=== PATIENT | male | born 1960 | race Asian ===

== ENCOUNTER 2016-08-16 14:10 | Emergency (ER) | payer OTHER ==
[2016-08-16 14:15] VITALS: TEMP 97.4; BMI 27.9
[2016-08-16] MEDS ORDERED: KETOROLAC TROMETHAMINE 30 MG/1 ML VIAL IVPUSH ONE (14:43)
[2016-08-16] MEDS ORDERED: SODIUM CHLORIDE 1,000 ML IV ONE (14:43)
--- NOTE | 2016-08-16 14:44 | PDOC ---
History of Present Illness - General History Source: Patient Exam Limitations: No Limitations - History of Present Illness Initial Comments: 08/16/16 14:52 The patient is a 56-year-old man with a past medical history of hypertension, hypercholesterolemia, diabetes mellitus and kidney stones who presents to the emergency department via walk-in for further evaluation of flank pain. No fall, trauma, strenuous activity. As per patient, he had an acute onset of left sided flank pain since last night, that has remained constant throughout with a rated 8/10 in severity. He states that his pain has started to radiate up his back. He denies any urinary associated symptoms. No fever, chills. He states that his current symptoms are similar to when he had a kidney stone in the past , which was also on the left side. He did not take any pain medications in the past. No fever, chills, generalized weakness. No chest pain, lightheadedness, dizziness, palpitations, headache, visual changes. No abdominal pain, nausea, vomiting, diarrhea, No numbness, tingling, weakness sensations throughout his extremities. Allergies: No Known Drug Allergies Past Surgical History: Triple Bypass (2009) Social History: No tobacco or recreational drug use. Rare ETOH use Primary Care Physician: Dr. Rodger Vences [phone]/ [phone] Urologist: Dr. Nic Roman [phone] <Hannah Roman - Last Filed: 08/16/16 17:09> <Hill Brewer - Last Filed: 08/16/16 17:57> - General Chief Complaint: Pain, Acute Stated Complaint: FLANK PAIN Time Seen by Provider: 08/16/16 14:38 Past History <Hannah Roman - Last Filed: 08/16/16 17:09> - Past Medical History Diabetes: Yes (BORDERLINE) Disorders: Yes (KIDNEY STONES) HTN: Yes Hypercholesterolemia: Yes - Surgical History Cardiac Surgery: Yes (TRIPLE BYPASS IN 2009) Orthopedic Surgery: No - Psycho/Social/Smoking Cessation Hx Anxiety: No Suicidal Ideation: No Smoking Status: No Smoking History: Never smoked Have you smoked in the past 12 months: No Number of Cigarettes Smoked Daily: 0 Information on smoking cessation initiated: No Hx Alcohol Use: Yes (RARE) Drug/Substance Use Hx: No Substance Use Type: Alcohol Hx Substance Use Treatment: No <Hill Brewer - Last Filed: 08/16/16 17:57> - Past Medical History Allergies/Adverse Reactions: Allergies Allergy/AdvReac Type Severity Reaction Status Date / Time No Known Allergies Allergy Verified 08/16/16 14:15 Home Medications: Ambulatory Orders Aspirin [ASA -] 81 mg PO DAILY 02/28/13 Metoprolol Succinate [Toprol XL] 25 mg PO BID 02/28/13 Ibuprofen [Motrin -] 400 mg PO QID PRN #28 tablet 08/16/16 Oxycodone HCl/Acetaminophen [Percocet 5-325 mg Tablet -] 1 combo PO Q6H PRN #14 tablet MDD 4 08/16/16 Pravastatin Sodium [Pravachol (Nf)] 40 mg PO HS 08/16/16 Tamsulosin HCl [Flomax] 0.4 mg PO DAILY #7 capsule 08/16/16 Review of Systems - Review of Systems Able to Perform ROS?: Yes Comments:: 08/16/16 14:52 CONSTITUTIONAL: No reported: Fever, Chills, Diaphoresis, Generalized Weakness, Malaise, Loss of Appetite HEENT: No reported: Rhinorrhea, Nasal Congestion, Throat Pain, Throat Swelling, Difficulty Swallowing, Mouth Swelling, Ear Pain, Eye Pain, Visual Changes CARDIOVASCULAR: No reported: Chest Pain, Syncope, Palpitations, Irregular Heart Rate, Lightheadedness, Peripheral Edema RESPIRATORY: No reported: Cough, Shortness of Breath, SOB with Exertion, Orthopnea, Wheezing , Stridor, Hemoptysis GASTROINTESTINAL: No reported: Abdominal pain, Abdominal Distension, Nausea, Vomiting, Diarrhea, Constipation, Melena, Hematochezia GENITOURINARY: Reported: Flank Pain. No reported: Dysuria, Frequency, Urgency, Hesitancy, Genital Pain MUSCULOSKELETAL: No reported: Myalgia, Arthralgia, Joint Swelling, Back pain, Neck Pain SKIN: No reported: Rash, Itching, Pallor HEMEATOLOGIC/IMMUNOLOGIC: No reported: Easy Bleeding, Easy Bruising, Lymphadenopathy, Frequent infections ENDOCRINE: No reported: Unexplained Weight Gain, Unexplained Weight Loss, Heat Intolerance , Cold Intolerance NEUROLOGIC: No reported: Headache, Focal Weakness, Paresthesias, Vertigo, Lightheadedness, Unsteady Gait, Seizure, Mental Status Changes, Incontinence PSYCHIATRIC: No reported: Anxiety, Depression <Hannah Roman - Last Filed: 08/16/16 17:09> *Physical Exam - Vital Signs Last Vital Signs Temp Pulse Resp BP Pulse Ox 97.4 F L 86 18 164/96 99 08/16/16 14:11 08/16/16 14:11 08/16/16 14:11 08/16/16 14:11 08/16/16 14:11 - Physical Exam Comments: 08/16/16 14:52 GENERAL: The patient is awake, alert, and fully oriented, Nontoxic - in no acute distress. HEAD: Normocephalic, atraumatic. EYES: extraocular movements intact, sclera anicteric, conjunctiva clear. ENT: Normal voice, Moist mucous membranes. NECK: Normal range of motion, supple LUNGS: Breath sounds equal, clear to auscultation bilaterally. No wheezes, no rhonchi, no rales. HEART: Regular rate and rhythm, without murmur, rub or gallop. ABDOMEN: Soft, nontender, normoactive bowel sounds. No guarding, no rebound. Left CVA tenderness EXTREMITIES: Normal range of motion, no edema. No clubbing or cyanosis. No cords, erythema, or tenderness. NEUROLOGICAL: No facial assymetry, Normal speech, PSYCH: Normal mood, normal affect. SKIN: Warm, Dry, normal turgor. <Hannah Roman - Last Filed: 08/16/16 17:09> - Vital Signs Last Vital Signs Temp Pulse Resp BP Pulse Ox 97.4 F L 86 18 164/96 99 08/16/16 14:11 08/16/16 14:11 08/16/16 14:11 08/16/16 14:11 08/16/16 14:11 <Hill Brewer - Last Filed: 08/16/16 17:57> ED Treatment Course - LABORATORY CBC & Chemistry Diagram: 08/16/16 15:00 08/16/16 15:00 - RADIOLOGY Radiograph Interpretation: 08/16/16 17:09 EXAM: CT/SPIRAL- RENAL-STONE CT Renal stone CT without contrast IMPRESSION: In comparison to a previous CT exam of 02/28/2013 interval development of a 3 mm calculus is noted at the left ureterovesical junction with resultant mild hydroureteronephrosis. There has been interval passage/ removal of a 4 mm distal right ureteral calculus with associated resolution of right-sided hydronephrosis. The remainder of the study appears unchanged. Several bilateral nonobstructing renal calculi are noted the most prominent measuring 4 to 5 mm in diameter. Small bilateral inguinal hernias containing fat only. Incidental note is again made of calcification of the vas deferens bilaterally - ? history of diabetes. Mild to moderate prostate enlargement. A small right hepatic lobe calcification is again seen. The spleen, pancreas, gallbladder, and adrenal glands demonstrate no discrete noncontrast abnormality. There is no aortic aneurysm. No free intraperitoneal fluid is seen. There is no definite lymphadenopathy. Status post median sternotomy. <Hannah Roman - Last Filed: 08/16/16 17:09> - LABORATORY CBC & Chemistry Diagram: 08/16/16 15:00 08/16/16 15:00 <Hill Brewer - Last Filed: 08/16/16 17:57> Medical Decision Making - Medical Decision Making 08/16/16 14:43 suspect kidney stones L flank pain, will obtain 08/16/16 17:44 ct c/w kidney stone pt feeling improved after pain meds will dc to fu with pmd an durology reutrn precautions were discussed I discussed the physical exam findings, ancillary test results and final diagnoses with the patient. I answered all of the patient's questions. The patient was satisfied with the care received and felt comfortable with the discharge plan and treatment plan. The patient will call their primary care physician within 24 hours to arrange follow-up and will return to the Emergency Department with any new, persistent or worsening symptoms. <Hill Brewer - Last Filed: 08/16/16 17:57> *DC/Admit/Observation/Transfer - Attestations Scribe Attestion: 08/16/16 14:52 Documentation prepared by Hannah Roman, acting as faculty i on call medical assistant for Hill Brewer MD. <Hannah Roman - Last Filed: 08/16/16 17:09> - Discharge Dispostion Admit: No <Hill Brewer - Last Filed: 08/16/16 17:57> Diagnosis at time of Disposition: Kidney stone on left side - Discharge Dispostion Disposition: HOME Condition at time of disposition: Improved - Prescriptions Prescriptions: Tamsulosin HCl [Flomax] 0.4 mg PO DAILY #7 capsule Ibuprofen [Motrin -] 400 mg PO QID PRN #28 tablet PRN Reason: Pain Oxycodone HCl/Acetaminophen [Percocet 5-325 mg Tablet -] 1 combo PO Q6H PRN #14 tablet MDD 4 PRN Reason: Pain - Referrals Referrals: Rodger Vences MD [Primary Care Provider] - Nic Roman MD [Staff Physician] - - Patient Instructions Printed Discharge Instructions: DI for Kidney Stones Additional Instructions: Return to the emergency department immediately with ANY new, persistent or worsening symptoms including worsening pain, inability to tolerate oral intake, fever/chills, or any other concerns. Take the ibuprofen every 6 hours for the next 2 days. Take percocet if you have pain that is not treated with the motrin/ibuprofen. Beware that it may make you sleepy, so do not drive or do anything that would put you or others in danger. Take flomax daily. Stay well hydrated. You MUST call and follow up with your doctor and urology within 3 days for further evaluation of your symptoms. Your emergency department visit is not complete without a followup with your doctor for reevaluation. Results were discussed with you. Please make sure your doctor reviews the results of your emergency evaluation. Print Language: BAHAMIAN
[2016-08-16] MEDS ORDERED: KETOROLAC TROMETHAMINE 30 MG/1 ML VIAL ONE (15:05)
[2016-08-16 15:08] LABS: BASOPHIL 1.1 % (0-2.0); EOSINOPHIL 2.6 % (0-4.5); MCH 29.6 pg (25.7-33.7); MCHC 33.2 g/dl (32.0-35.9); MEAN CELL VOLUME 89.2 fl (80-96); MEAN PLT VOLUME 7.5 fl (7.5-11.1); NEUTROPHILS 57.1 % (42.8-82.8); PLATELET COUNT 277 K/MM3 (134-434); RDW 13.5 % (11.9-15.9); WHITE BLOOD COUNT 10.1 K/mm3 (4.0-10.0)
[2016-08-16 15:24] LABS: URINE APPEARANCE CLEAR; URINE BILIRUBIN NEGATIVE (NEGATIVE); URINE COLOR YELLOW; URINE GLUCOSE (UA) NEGATIVE (NEGATIVE); URINE KETONE NEGATIVE (NEGATIVE); URINE LEUK ESTERASE NEGATIVE (NEGATIVE); URINE NITRITE NEGATIVE (NEGATIVE); URINE PROTEIN NEGATIVE (NEGATIVE); URINE UROBILINOGEN NEGATIVE E.U./dl (0.2-1.0)
[2016-08-16 15:26] LABS: URINE BLOOD 3+ (NEGATIVE)
[2016-08-16 15:27] LABS: URINE MUCUS RARE; URINE RBC 395 /hpf (0-3); URINE WBC 1 /hpf (3-5)
[2016-08-16 15:30] LABS: ALBUMIN 4.1 g/dl (3.4-5.0); ANION GAP 11 (8-16); CALCIUM 8.6 mg/dL (8.5-10.1); CO2 25 mmol/L (21-32); GLUCOSE,RANDOM 163 mg/dL (74-106); SGOT/AST 40 U/L (15-37); SGPT/ALT 77 U/L (12-78); TOT PROT 7.5 g/dl (6.4-8.2)
[2016-08-16 15:37] LABS: ALK PHOS 86 U/L (45-117); BILIRUBIN,TOTAL 0.7 mg/dL (0.2-1.0)
[2016-08-16] MEDS ORDERED: OXYCODONE/APAP 5/325MG COMBO TABLET PO ONE (17:18)
[2016-08-16] MEDS ORDERED: OXYCODONE/APAP 5/325MG COMBO TABLET ONE (17:26)
[2016-08-16 17:59] VITALS: BP 149/97; PULSE 81
== END 2016-08-16 18:03 | disposition home or self-care (01) ==
LOC: JER 14:10
PROC: 3E0333Z Introduction of Anti-inflammatory into Peripheral Vein, Percutaneous Approach (ICD-10-PCS; principal; 2016-08-16)
DX: N13.2 Hydronephrosis with renal and ureteral calculous obstruction (principal); Z87.442 Personal history of urinary calculi; I25.10 Atherosclerotic heart disease of native coronary artery without angina pectoris; I10 Essential (primary) hypertension; Z95.1 Presence of aortocoronary bypass graft; E11.9 Type 2 diabetes mellitus without complications; Z79.84 Long term (current) use of oral hypoglycemic drugs; E78.00 Pure hypercholesterolemia, unspecified
CPT/HCPCS: 36415; 74176; 80053; 81003; 81015; 85025; 96374; 99284-25

== ENCOUNTER 2016-10-05 05:09 | Day surgery (SDC) | payer OTHER ==
[2016-10-04 09:55] VITALS: BMI 28.3
[2016-10-05] MEDS ORDERED: PROPOFOL 20 ML ONE (07:51)
[2016-10-05] MEDS ORDERED: LIDOCAINE HCL/PF 2% SDV 5ML VIAL ONE (07:52)
[2016-10-05] MEDS ORDERED: MIDAZOLAM HCL 2 MG/2 ML SINGLE DOSE VIAL ONE (07:52)
--- NOTE | 2016-10-05 07:54 | HP ---
History & Physical Update - History History: No Change - Physical Physical: No Change - Assessment Assessment: No Change - Plan Plan: No Change
--- NOTE | 2016-10-05 07:58 | OP ---
Operative Note - Note: Operative Date: 10/05/16 Pre-Operative Diagnosis: L renal calculus Operation: ESWL L Findings: L renal calculus Post-Operative Diagnosis: Same as Pre-op Surgeon: Nic Roman Anesthesiologist/HOTEL MAINTENANCE TECHNICIAN: Jazmine Caballero Anesthesia: Fractional Estimated Blood Loss (mls): 0 Operative Report Dictated: Yes
[2016-10-05] MEDS ORDERED: KETOROLAC TROMETHAMINE 30 MG/1 ML VIAL ONE (08:20)
[2016-10-05] MEDS ORDERED: oxyCODONE HCL 5 MG TABLET PO PRN (08:42)
[2016-10-05] MEDS ORDERED: ONDANSETRON 4 MG/2 ML VIAL IVPUSH PRN (08:42)
[2016-10-05] MEDS ORDERED: LACTATED RINGERS SOLUTION 1,000 ML IV SCH (08:45)
[2016-10-05 11:09] VITALS: TEMP 97.8
[2016-10-05 11:11] VITALS: BP 139/77; PULSE 55
--- NOTE | 2016-10-05 18:49 | OP ---
DATE OF OPERATION: 10/05/2016 PREOPERATIVE DIAGNOSIS: Left renal calculus. POSTOPERATIVE DIAGNOSIS: Left renal calculus. PROCEDURE: Extracorporeal shock wave lithotripsy, left renal calculus. SURGEON: Nic Martinez M.D. JUVENILE COUNSELOR: None. ANESTHESIA: IV sedation. ANESTHESIOLOGIST: Jazmine Caballero M.D. SPECIMEN: None. CULTURES: None. DRAINS: None. ESTIMATED BLOOD LOSS: None. COMPLICATIONS: None. DESCRIPTION OF PROCEDURE: Patient was brought in the operating room, placed on the operating table in supine position. After administration of intravenous sedation, patient was positioned over the treatment head, and under fluoroscopic guidance, possible left distal ureteral calculus at the ureterovesical junction was not visualized on fluoroscopy. Now left renal calculus was visualized on fluoroscopy, which was radiopaque. It was delivered 2500 shocks at maximum kilovoltage with excellent fragmentation. He tolerated the procedure well, transferred to the recovery room in stable condition. NIC MARTINEZ M.D. [id number]
== END 2016-10-05 11:15 | disposition home or self-care (01) ==
LOC: JASU-SURG 05:09
PROVIDERS: ATTEND Urology
PROC: 0TF4XZZ Fragmentation in Left Kidney Pelvis, External Approach (ICD-10-PCS; principal; 2016-10-05 08:00)
DX: N20.0 Calculus of kidney (principal)
CPT/HCPCS: 94760

== ENCOUNTER 2017-08-20 21:16 | Emergency (ER) | payer OTHER ==
[2017-08-20 21:24] VITALS: BP 123/76; PULSE 102; TEMP 99.1; BMI 28.3
[2017-08-21] MEDS ORDERED: SODIUM CHLORIDE 0.9% 500 ML INFUS.BAG IV ONE ×2 (01:01→03:05)
--- NOTE | 2017-08-21 01:01 | PDOC ---
History of Present Illness - General History Source: Patient Exam Limitations: No Limitations - History of Present Illness Initial Comments: 08/21/17 01:29 The patient is a 57 year old male with a significant past medical history of DM , HTN, and triple bypass who presents to the ED with abdominal pain since earlier today. The patient states he came back from a 22 hour flight from [facility] earlier today. He reports a sudden onset of generalized abdominal pain once he landed and got home. Patient also states he had around 20 bowel movements earlier tonight. Denies nausea or vomiting. Denies chest pain or shortness of breath. Denies dysuria or change in urinary output. Denies any other symptoms. <Amanda Trevino - Last Filed: 08/21/17 02:02> <Gina Calles - Last Filed: 08/21/17 22:29> - General Chief Complaint: Diarrhea Stated Complaint: ABDOMINAL PAIN Time Seen by Provider: 08/21/17 00:44 Past History <Amanda Trevino - Last Filed: 08/21/17 02:02> - Past Medical History Cardiac Disorders: (TRIPLE BYPASS 2009) COPD: No Diabetes: Yes Disorders: Yes (KIDNEY STONES) HTN: Yes Hypercholesterolemia: Yes - Surgical History Cardiac Surgery: Yes (TRIPLE BYPASS IN 2009) Orthopedic Surgery: No - Suicide/Smoking/Psychosocial Hx Smoking Status: No Smoking History: Never smoked Have you smoked in the past 12 months: No Number of Cigarettes Smoked Daily: 0 Information on smoking cessation initiated: No Hx Alcohol Use: No Drug/Substance Use Hx: No Substance Use Type: None Hx Substance Use Treatment: No <Gina Calles - Last Filed: 08/21/17 22:29> - Past Medical History Allergies/Adverse Reactions: Allergies Allergy/AdvReac Type Severity Reaction Status Date / Time No Known Allergies Allergy Verified 10/05/16 07:30 Home Medications: Ambulatory Orders Aspirin [ASA -] 81 mg PO DAILY 02/28/13 Metoprolol Succinate [Toprol XL -] 25 mg PO HS 02/28/13 Pravastatin Sodium [Pravachol -] 40 mg PO HS 08/16/16 Metformin HCl 500 mg PO ACDIN 10/04/16 Review of Systems - Review of Systems Able to Perform ROS?: Yes Comments:: 08/21/17 01:30 CONSTITUTIONAL: Absent: fever, chills, diaphoresis, generalized weakness, malaise, loss of appetite HEENT: Absent: rhinorrhea, nasal congestion, throat pain, throat swelling, difficulty swallowing, mouth swelling, ear pain, eye pain, visual Changes CARDIOVASCULAR: Absent: chest pain, syncope, palpitations, irregular heart rate, lightheadedness , peripheral edema RESPIRATORY: Absent: cough, shortness of breath, dyspnea with exertion, orthopnea, wheezing, stridor, hemoptysis GASTROINTESTINAL: + abdominal pain, diarrhea Absent: abdominal distension, nausea, vomiting, constipation, melena, hematochezia GENITOURINARY: Absent: dysuria, frequency, urgency, hesitancy, hematuria, flank pain, genital pain MUSCULOSKELETAL: Absent: myalgia, arthralgia, joint swelling SKIN: Absent: rash, itching, pallor HEMATOLOGIC/IMMUNOLOGIC: Absent: easy bleeding, easy bruising, lymphadenopathy, frequent infections ENDOCRINE: Absent: unexplained weight gain, unexplained weight loss, heat intolerance, cold intolerance NEUROLOGIC: Absent: headache, focal weakness or paresthesias, dizziness, unsteady gait, seizure, mental status changes, bladder or bowel incontinence PSYCHIATRIC: Absent: anxiety, depression, suicidal or homicidal ideation, hallucinations. All Other Systems: Reviewed and Negative <Amanda Trevino - Last Filed: 08/21/17 02:02> *Physical Exam - Vital Signs Last Vital Signs Temp Pulse Resp BP Pulse Ox 99.1 F 102 H 18 123/76 100 08/20/17 21:21 08/20/17 21:21 08/20/17 21:21 08/20/17 21:21 08/20/17 21:21 - Physical Exam Comments: 08/21/17 01:30 GENERAL: Well developed, well nourished. Awake and alert. No acute distress. HEENT: Normocephalic, atraumatic. PERRLA, EOMI. No conjunctival pallor. Sclera are non- icteric. Moist mucous membranes. Oropharynx is clear. NECK: Supple. Full ROM. No JVD. Carotid pulses 2+ and symmetric, without bruits. No thyromegaly. NCo lymphadenopathy. CARDIOVASCULAR: Regular rate and rhythm. No murmurs, rubs, or gallops. Distal pulses are 2+ and symmetric. PULMONARY: No evidence of respiratory distress. Lungs clear to auscultation bilaterally. No wheezing, rales or rhonchi. ABDOMINAL: + gassy bowel sounds Soft. Non-tender. Non-distended. No rebound or guarding. No organomegaly. MUSCULOSKELETAL Normal range of motion at all joints. No bony deformities or tenderness. No CVA tenderness. EXTREMITIES: No cyanosis. No clubbing. No edema. No calf tenderness. SKIN: Warm and dry. Normal capillary refill. No rashes. No jaundice. NEUROLOGICAL: Alert, awake, appropriate. Cranial nerves 2-12 intact. No deficits to light touch and temperature in face, upper extremities and lower extremities. No motor deficits in the in face, upper extremities and lower extremities. Normoreflexic in the upper and lower extremities. Normal speech. Toes are down- going bilaterally. Gait is normal without ataxia. PSYCHIATRIC: Cooperative. Good eye contact. Appropriate mood and affect. <Amanda Trevino - Last Filed: 08/21/17 02:02> - Vital Signs Last Vital Signs Temp Pulse Resp BP Pulse Ox 99.1 F 102 H 18 123/76 100 08/20/17 21:21 08/20/17 21:21 08/20/17 21:21 08/20/17 21:21 08/20/17 21:21 <Gina Calles - Last Filed: 08/21/17 22:29> Heart Score/ECG Review #1 08/21/17 02:02 Vent rate 81 bpm OK interval 128 ms QRS duration 92 ms Normal sinus rhythm Septal flipped Ts Reported by: Dr. Calles <Amanda Trevino - Last Filed: 08/21/17 02:02> ED Treatment Course - LABORATORY CBC & Chemistry Diagram: 08/21/17 01:11 08/21/17 01:11 <Amanda Trevino - Last Filed: 08/21/17 02:02> - LABORATORY CBC & Chemistry Diagram: 08/21/17 01:11 08/21/17 01:11 <Gina Calles - Last Filed: 08/21/17 22:29> Medical Decision Making - Medical Decision Making 08/21/17 03:43 [facility] hr flight. He had 20 runs of diarrhea on the plane. States that he was food poisoned. He has CAD; hx of CABG. He has no chest pains and no other complaints. He has no other complaints. He is afebrile and he denies nausea or vomiting. Pt will be hydrated. Labs show trace + acetone. Otherwise normal. Pt has a hx of DM that is treated with glucophage. Blood sugar is well controlled. 08/21/17 03:47 Anion gap is 14 08/21/17 22:29 Pt given motr fluids. He is feeling vastly improved and he will follow with his PMD; stable for discharge home. <Gina Calles - Last Filed: 08/21/17 22:29> *DC/Admit/Observation/Transfer - Attestations Scribe Attestion: 08/21/17 01:31 Documentation prepared by Amanda Trevino, acting as faculty i on call medical assistant for Gina Calles MD <Amanda Trevino - Last Filed: 08/21/17 02:02> - Discharge Dispostion Admit: No <Gina Calles - Last Filed: 08/21/17 22:29> Diagnosis at time of Disposition: Food poisoning - Discharge Dispostion Disposition: HOME Condition at time of disposition: Stable - Referrals Referrals: Rodger Vences MD [Primary Care Provider] - - Patient Instructions Printed Discharge Instructions: Food Poisoning - Post Discharge Activity
[2017-08-21] MEDS ORDERED: LOPERAMIDE HCL 2 MG CAPSULE PO ONE (01:16)
[2017-08-21] MEDS ORDERED: LOPERAMIDE HCL 2 MG CAPSULE ONE (01:29)
[2017-08-21 01:33] LABS: BASO % 0.3 % (0-2.0); EOS % 0.5 % (0-4.5); HEMATOCRIT 48.7 % (35.4-49); HEMOGLOBIN 16.4 GM/dL (11.7-16.9); LYMPH % 9.5 % (8-40); MCH 30.4 pg (25.7-33.7); MCHC 33.6 g/dl (32.0-35.9); MEAN CELL VOLUME 90.5 fl (80-96); MEAN PLT VOLUME 8.1 fl (7.5-11.1); NEUT % 76.7 % (42.8-82.8); PLATELET COUNT 282 K/MM3 (134-434); RBC 5.38 M/mm3 (4.00-5.60); RDW 14.5 % (11.9-15.9); WHITE BLOOD COUNT 11.2 K/mm3 (4.0-10.0)
[2017-08-21 01:46] LABS: INR 1.39 (0.82-1.09); PROTHROMBIN TIME (PATIENT) 15.7 SEC (9.98-11.88)
[2017-08-21 01:56] LABS: ALBUMIN 3.4 g/dl (3.4-5.0); ALK PHOS 70 U/L (45-117); ANION GAP 14 (8-16); BILIRUBIN,TOTAL 0.6 mg/dL (0.2-1.0); BLOOD UREA NITROGEN 14 mg/dL (7-18); CALCIUM 8.7 mg/dL (8.5-10.1); CHLORIDE 101 mmol/L (98-107); CO2 20 mmol/L (21-32); CREATININE 1.3 mg/dL (0.7-1.3); GLUCOSE,RANDOM 152 mg/dL (74-106); POTASSIUM 3.9 mmol/L (3.5-5.1); SGOT/AST 27 U/L (15-37); SGPT/ALT 35 U/L (12-78); SODIUM 135 mmol/L (136-145); TOT PROT 7.4 g/dl (6.4-8.2)
--- NOTE | 2017-08-21 09:22 | EKG ---
Test Reason : Blood Pressure : / mmHG Vent. Rate : 081 BPM Atrial Rate : 081 BPM P-R Int : 128 ms QRS Dur : 092 ms QT Int : 394 ms P-R-T Axes : 060 -30 078 degrees QTc Int : 457 ms NORMAL SINUS RHYTHM POSSIBLE LEFT ATRIAL ENLARGEMENT LEFT AXIS DEVIATION INFERIOR INFARCT , AGE UNDETERMINED ABNORMAL ECG WHEN COMPARED WITH ECG OF 02-MAR-2013 08:58, INFERIOR INFARCT IS NOW PRESENT Confirmed by EMIR BONNER, ERIC ([id number]) on 08/21/2017 9:21:50 AM Referred By: Confirmed By:ERIC FIELD MD
== END 2017-08-21 05:27 | disposition home or self-care (01) ==
LOC: JER 21:16
DX: T62.8X1A Toxic effect of other specified noxious substances eaten as food, accidental (unintentional), initial encounter (principal); K52.1 Toxic gastroenteritis and colitis; Y92.813 Airplane as the place of occurrence of the external cause; I25.10 Atherosclerotic heart disease of native coronary artery without angina pectoris; I10 Essential (primary) hypertension; Z95.1 Presence of aortocoronary bypass graft; E78.00 Pure hypercholesterolemia, unspecified
CPT/HCPCS: 36415; 71046-TC-FY; 80053; 82009; 85025; 85610; 93005; 93010; 99281-25

== ENCOUNTER 2023-01-28 17:46 | Inpatient (IN) | payer OTHER ==
[2023-01-28] MEDS ORDERED: PROCHLORPERAZINE INJECTION 10 MG/2 ML VIAL IVPB ONE (18:33)
[2023-01-28] MEDS ORDERED: METOCLOPRAMIDE HCL INJECTION 10 MG/2 ML VIAL IVPUSH ONE (18:34)
[2023-01-28] MEDS ORDERED: SODIUM CHLORIDE 0.9% 500 ML INFUS.BAG IV ONE (18:35)
[2023-01-28] MEDS ORDERED: KETOROLAC TROMETHAMINE 15 MG/ML VIAL IVPUSH ONE (19:28)
[2023-01-28] MEDS ORDERED: PROCHLORPERAZINE INJECTION 10 MG/2 ML VIAL ONE (19:29)
[2023-01-28 19:52] LABS: POTASSIUM 3.9 mmol/L (3.5-5.1)
[2023-01-28 19:53] LABS: EOS % 2.2 % (0-4.5); HEMATOCRIT 42.9 % (35.4-49); HEMOGLOBIN 14.3 GM/dL (11.7-16.9); LYMPH % 4.5 % (8-40); MCH 29.7 pg (25.7-33.7); MCHC 33.4 g/dl (32.0-35.9); MEAN CELL VOLUME 88.8 fl (80-96); MEAN PLT VOLUME 7.3 fl (7.5-11.1); MONO % 9.6 % (3.8-10.2); NEUT % 82.7 % (42.8-82.8); PLATELET COUNT 269 10^3/uL (134-434); RBC 4.83 M/mm3 (4.00-5.60); WHITE BLOOD COUNT 9.5 K/mm3 (4.0-10.0)
[2023-01-28 19:54] LABS: BLOOD UREA NITROGEN 8.8 mg/dL (7-18); CALCIUM 8.3 mg/dL (8.5-10.1)
[2023-01-28] MEDS ORDERED: KETOROLAC TROMETHAMINE 15 MG/ML VIAL ONE (19:54)
[2023-01-28] MEDS ORDERED: METOCLOPRAMIDE HCL INJECTION 10 MG/2 ML VIAL ONE (19:54)
[2023-01-28 19:59] LABS: BILIRUBIN,TOTAL 0.4 mg/dL (0.2-1); TOT PROT 7.5 g/dl (6.4-8.2)
[2023-01-28 20:22] LABS: PH,URINE 5.5 (5.0-8.0); URINE APPEARANCE CLEAR; URINE BILIRUBIN NEGATIVE (NEGATIVE); URINE COLOR YELLOW; URINE GLUCOSE (UA) NEGATIVE (NEGATIVE); URINE KETONE NEGATIVE (NEGATIVE); URINE LEUK ESTERASE NEGATIVE (NEGATIVE); URINE NITRITE NEGATIVE (NEGATIVE); URINE PROTEIN NEGATIVE (NEGATIVE); URINE UROBILINOGEN 0.2 mg/dL (0.2-1.0)
[2023-01-28 21:55] LABS: ERYTHROCYTE SEDIMENTATION RATE 7 mm/hr (0-20)
[2023-01-28 22:25] LABS: BF GLUCOSE (CSF ONLY) 103 mg/dL (40-70)
[2023-01-28] MEDS ORDERED: ACYCLOVIR INJECTION 800 MG in DEXTROSE 5%-WATER - 100 ML IVPB ONE (22:42)
[2023-01-28] MEDS ORDERED: VANCOMYCIN 2,000 MG in DEXTROSE 5%-WATER - 250 ML IVPB ONE (22:45)
[2023-01-28] MEDS ORDERED: CEFTRIAXONE 2,000 MG in DEXTROSE 5%-WATER - 50 ML IVPB ONE (22:45)
[2023-01-28] MEDS ORDERED: AMPICILLIN - 2 GM in SODIUM CHLORIDE 100 ML IVPB ONE (22:46)
[2023-01-28 22:59] LABS: CSF APPEARANCE CLEAR (CLEAR); CSF COLOR COLORLESS (COLORLESS)
[2023-01-28 23:05] LABS: CSF WBC 7 mm3 (0-5)
[2023-01-28] MEDS ORDERED: DOCUSATE SODIUM 100 MG CAPSULE (FP) PO PRN (23:42)
[2023-01-29] MEDS: SODIUM CHLORIDE 1,000 ML IV SCH ×3 (00:01→23:50)
[2023-01-29] MEDS ORDERED: ACETAMINOPHEN 1000 MG/100 ML BAG IVPB ONE (00:57)
[2023-01-29] MEDS ORDERED: ACETAMINOPHEN INJECTION 100 ML IVPB ONE (01:03)
[2023-01-29] MEDS ORDERED: CEFTRIAXONE 2 GM/100 ML BAG IVPB ONE (01:36)
[2023-01-29] MEDS ORDERED: VANCOMYCIN/WATER 2 GRAMS 2,000 MG/400 ML PIGGYBACK IVPB ONE (02:45)
[2023-01-29] MEDS ORDERED: CEFTRIAXONE 2 GM in DEXTROSE 5%-WATER 100 ML IVPB ONE (02:45)
[2023-01-29 04:26] VITALS: BMI 26.0
[2023-01-29] MEDS: INSULIN SLIDING SCALE (NOVOLOG) 1 VIAL SQ SCH ×4 (06:05→22:03)
[2023-01-29 09:17] LABS: EOS % 0.3 % (0-4.5); HEMATOCRIT 43.6 % (35.4-49); HEMOGLOBIN 14.6 GM/dL (11.7-16.9); LYMPH % 9.2 % (8-40); MCH 30.1 pg (25.7-33.7); MCHC 33.4 g/dl (32.0-35.9); MEAN CELL VOLUME 90.1 fl (80-96); MEAN PLT VOLUME 7.2 fl (7.5-11.1); MONO % 15.7 % (3.8-10.2); NEUT % 73.8 % (42.8-82.8); PLATELET COUNT 239 10^3/uL (134-434); RBC 4.83 M/mm3 (4.00-5.60); RDW 14.7 % (11.9-15.9); WHITE BLOOD COUNT 8.6 K/mm3 (4.0-10.0)
[2023-01-29 09:25] LABS: INR 1.38 (0.83-1.09); PROTHROMBIN TIME (PATIENT) 15.9 SEC (9.7-13.0)
[2023-01-29 09:28] LABS: ACTIVATED PTT 30.2 SECONDS (25.2-36.5)
[2023-01-29 09:35] LABS: POTASSIUM 4.2 mmol/L (3.5-5.1)
[2023-01-29 09:42] LABS: CALCIUM 8.1 mg/dL (8.5-10.1)
[2023-01-29 09:44] LABS: BLOOD UREA NITROGEN 9.8 mg/dL (7-18); MAGNESIUM 1.7 mg/dL (1.8-2.4)
[2023-01-29 09:47] LABS: CREATININE 1.1 mg/dL (0.55-1.3); PHOSPHOROUS 2.4 mg/dL (2.5-4.9)
[2023-01-29] MEDS ORDERED: ACYCLOVIR INJECTION 800 MG in DEXTROSE 5%-WATER - 100 ML IVPB SCH (10:00)
[2023-01-29] MEDS ORDERED: CLOPIDOGREL BISULFATE 75 MG TABLET (FP) PO SCH (10:00)
[2023-01-29] MEDS: amLODIPine BESYLATE 5 MG TABLET (FP) PO SCH (10:30)
[2023-01-29] MEDS: RANOLAZINE E.R. 500 MG TABLET (FP) PO SCH ×2 (10:30→22:03)
[2023-01-29] MEDS: AMPICILLIN - 2 GM in SODIUM CHLORIDE 100 ML IVPB SCH ×2 (10:31→10:40)
[2023-01-29] MEDS ORDERED: ACYCLOVIR INJECTION 800 MG in DEXTROSE 5%-WATER - 250 ML IVPB SCH (11:00)
[2023-01-29] MEDS ORDERED: INSULIN (NOVOLOG) ASPART 100 UNITS/ML 10ML VIAL ONE ×3 (11:15→21:11)
[2023-01-29] MEDS ORDERED: VANCOMYCIN/WATER 1250 MG 1,250 MG/250 ML BAG IVPB SCH (14:00)
[2023-01-29] MEDS: VANCOMYCIN/WATER 1250 MG 1,250 MG/250 ML BAG IVPB SCH (16:52)
[2023-01-29] MEDS: ACETAMINOPHEN 1000 MG/100 ML BAG IVPB PRN (20:29)
[2023-01-29] MEDS ORDERED: PATIENT'S OWN MEDICATION (NON-FORMULARY) (Pravastatin Sodium 40 MG Tablet) PO SCH (22:00)
[2023-01-29] MEDS: metoPROLOL SUCCINATE 25 MG TAB.SR.24H (FP) PO SCH (22:03)
[2023-01-29] MEDS: ATORVASTATIN CA 80 MG TABLET (FP) PO SCH (22:03)
[2023-01-30] MEDS: VANCOMYCIN/WATER 1250 MG 1,250 MG/250 ML BAG IVPB SCH (04:24)
[2023-01-30] MEDS: ACETAMINOPHEN 1000 MG/100 ML BAG IVPB PRN (06:15)
[2023-01-30] MEDS: INSULIN SLIDING SCALE (NOVOLOG) 1 VIAL SQ SCH ×4 (06:33→21:43)
[2023-01-30 08:28] LABS: BASO % 1.2 % (0-2.0); EOS % 0.2 % (0-4.5); HEMATOCRIT 41.6 % (35.4-49); HEMOGLOBIN 14.6 GM/dL (11.7-16.9); LYMPH % 12.2 % (8-40); MCH 30.6 pg (25.7-33.7); MCHC 35.1 g/dl (32.0-35.9); MEAN CELL VOLUME 87.2 fl (80-96); MEAN PLT VOLUME 7.2 fl (7.5-11.1); MONO % 13.6 % (3.8-10.2); NEUT % 72.8 % (42.8-82.8); PLATELET COUNT 185 10^3/uL (134-434); RBC 4.77 M/mm3 (4.00-5.60); RDW 14.3 % (11.9-15.9); WHITE BLOOD COUNT 5.7 K/mm3 (4.0-10.0)
[2023-01-30 08:49] LABS: POTASSIUM 3.6 mmol/L (3.5-5.1)
[2023-01-30 08:54] LABS: ALBUMIN 3.4 g/dl (3.4-5.0); BLOOD UREA NITROGEN 11.5 mg/dL (7-18)
[2023-01-30 08:58] LABS: BILIRUBIN,TOTAL 0.9 mg/dL (0.2-1)
[2023-01-30 08:59] LABS: TOT PROT 6.9 g/dl (6.4-8.2)
[2023-01-30] MEDS: amLODIPine BESYLATE 5 MG TABLET (FP) PO SCH (10:00)
[2023-01-30] MEDS: RANOLAZINE E.R. 500 MG TABLET (FP) PO SCH ×2 (10:00→21:30)
[2023-01-30] MEDS: ACETAMINOPHEN 325 MG TABLET (FP) PO PRN ×2 (13:53→18:44)
[2023-01-30] MEDS: SODIUM CHLORIDE 1,000 ML IV SCH ×2 (13:58→23:50)
[2023-01-30] MEDS ORDERED: CEFTRIAXONE 2 GM in DEXTROSE 5%-WATER 100 ML IVPB SCH (14:00)
[2023-01-30] MEDS: ATORVASTATIN CA 80 MG TABLET (FP) PO SCH (21:30)
[2023-01-30] MEDS: metoPROLOL SUCCINATE 25 MG TAB.SR.24H (FP) PO SCH (21:30)
[2023-01-30] MEDS ORDERED: INSULIN (NOVOLOG) ASPART 100 UNITS/ML 10ML VIAL ONE (21:41)
[2023-01-31] MEDS: ACETAMINOPHEN 325 MG TABLET (FP) PO PRN ×2 (03:44→14:43)
[2023-01-31] MEDS: SODIUM CHLORIDE 1,000 ML IV SCH (03:50)
[2023-01-31 05:11] VITALS: RESP 18
[2023-01-31] MEDS: INSULIN SLIDING SCALE (NOVOLOG) 1 VIAL SQ SCH ×2 (07:59→11:44)
[2023-01-31] MEDS: RANOLAZINE E.R. 500 MG TABLET (FP) PO SCH (10:17)
[2023-01-31] MEDS: amLODIPine BESYLATE 5 MG TABLET (FP) PO SCH (10:17)
[2023-01-31 10:36] LABS: BASO % 1.1 % (0-2.0); EOS % 0.1 % (0-4.5); HEMATOCRIT 45.4 % (35.4-49); HEMOGLOBIN 15.8 GM/dL (11.7-16.9); LYMPH % 13.3 % (8-40); MCH 30.6 pg (25.7-33.7); MCHC 34.8 g/dl (32.0-35.9); MEAN PLT VOLUME 7.8 fl (7.5-11.1); MONO % 12.3 % (3.8-10.2); NEUT % 73.2 % (42.8-82.8); PLATELET COUNT 139 10^3/uL (134-434); RBC 5.16 M/mm3 (4.00-5.60); RDW 14.4 % (11.9-15.9); WHITE BLOOD COUNT 5.6 K/mm3 (4.0-10.0)
[2023-01-31 11:16] LABS: POTASSIUM 3.6 mmol/L (3.5-5.1)
[2023-01-31 11:18] LABS: CALCIUM 8.1 mg/dL (8.5-10.1)
[2023-01-31 11:19] LABS: ALBUMIN 3.8 g/dl (3.4-5.0); BLOOD UREA NITROGEN 11.9 mg/dL (7-18)
[2023-01-31 11:23] LABS: BILIRUBIN,TOTAL 0.5 mg/dL (0.2-1); TOT PROT 7.5 g/dl (6.4-8.2)
[2023-01-31 14:40] VITALS: BP 138/78; PULSE 91
[2023-01-31 14:46] VITALS: TEMP 99.2
[2023-02-02 16:08] LABS: WEST NILE VIRUS AB SERUM,IGM Negative (Negative)
[2023-02-03 16:08] LABS: TOXOPLASMA IGG,CSF < 3.0 IU/mL (<=8.8)
[2023-02-03 18:07] LABS: ALPHA-1-GLOBULIN,CSF 3.3 % (2.6-7.0); ALPHA-2-GLOBULIN,CSF 6.1 % (3.1-8.7); BETA GLOBULIN,CSF 16.7 % (11.8-21.7); GAMMA GLOBULIN,CSF 10.5 % (2.8-8.5); M-SPIKE CSF Not Observed % (Not Observed); PRE-ALBUMIN CSF 5.2 % (1.0-5.0)
== END 2023-01-31 15:18 | disposition left against medical advice (07) | DRG 723 ==
LOC: JER 17:46 → JERBED 23:07 → J6S 01-29 01:56 → OBSVTOIN 01-31 09:11
PROVIDERS: ADMIT Internal Medicine; ATTEND Internal Medicine
PROC: 009U3ZZ Drainage of Spinal Canal, Percutaneous Approach (ICD-10-PCS; principal; 2023-01-28)
DX: B34.9 Viral infection, unspecified (principal); E11.9 Type 2 diabetes mellitus without complications; I10 Essential (primary) hypertension; E78.5 Hyperlipidemia, unspecified; I25.10 Atherosclerotic heart disease of native coronary artery without angina pectoris; M54.2 Cervicalgia
CPT/HCPCS: 0241U-QW; 36415; 70450-TC; 70544-TC; 70551-TC; 71045-TC-FY; 80048; 80053; 81003; 82945; 82962; 83036; 83605; 83615; 83735; 84100; 84157; 84166; 85025; 85610; 85651; 85730; 86140; 86592; 86617; 86704; 86708; 86777; 86788; 86789; 86790; 86803; 87040; 87070; 87086; 87102; 87205; 87207; 87210; 87252; 87340; 87517; 87529; 87798; 87899; 93005; 93010; 99285-25; G0378